=== PATIENT | male | born 1965 | race American Indian/Alaskan Native ===

== ENCOUNTER 2021-10-16 07:56 | Day surgery (SDC) | payer OTHER ==
[2021-10-16 08:56] LABS: Basophils # (Auto) 0.1 K/mm3 (0.0-0.1); Basophils % (Auto) 1.1 % (0.0-1.8); Eosinophils # (Auto) 0.3 K/mm3 (0.0-0.4); Eosinophils % (Auto) 6.2 % (0.0-4.3); Hematocrit 41.3 % (35.5-45.6); Hemoglobin 13.5 gm/dl (11.8-15.2); Lymphocytes # (Auto) 1.8 K/mm3 (1.2-5.4); Lymphocytes % (Auto) 36.5 % (13.4-35.0); Mean Corpuscular HGB Conc 33 % (32-34); Mean Corpuscular Volume 87 fl (84-94); Monocytes # (Auto) 0.6 K/mm3 (0.0-0.8); Monocytes % (Auto) 12.8 % (0.0-7.3); Platelet Count 234 K/mm3 (140-440); Red Blood Count 4.77 M/mm3 (3.65-5.03); Red Cell Distribution Width 14.1 % (13.2-15.2)
[2021-10-16 09:05] LABS: INR 0.89 (0.87-1.13)
[2021-10-16 09:10] LABS: BUN/Creatinine Ratio 13; Blood Urea Nitrogen 14 mg/dL (9-20); Calcium 8.7 mg/dL (8.4-10.2); Hemolysis Index 4
[2021-10-16 09:32] LABS: Partial Thromboplastin Time 27.1 Sec. (24.2-36.6)
[2021-10-16] MEDS: SODIUM CHLORIDE 0.9% 500 ML 500 ML IV SCH ×2 (09:37→10:21)
[2021-10-16] MEDS ORDERED: ASPIRIN 81 MG TAB CHEW PO SCH (10:00)
[2021-10-16] MEDS ORDERED: HEPARIN/NS 5000 UNIT/500ML 1,000 ML IR ONE (10:07)
[2021-10-16] MEDS: LIDOCAINE (1%) 10 MG/1 ML VIAL 20 ML MDV ONE ×2 (10:18→10:33)
[2021-10-16] MEDS: MIDAZOLAM 2 MG/2 ML INJ ONE ×2 (10:19→10:30)
[2021-10-16] MEDS: fentaNYL 100 MCG/2 ML INJ ONE ×2 (10:19→10:30)
[2021-10-16] MEDS: HEPARIN 10,000 UNITS/10 ML VIAL ONE ×2 (10:20→10:35)
[2021-10-16] MEDS: VERAPAMIL 5 MG/2 ML INJ ONE ×2 (10:20→10:35)
[2021-10-16] MEDS: NITROGLYCERIN SYRINGE 3 ML ONE ×2 (10:21→10:35)
[2021-10-16] MEDS ORDERED: NITROGLYCERIN 0.4 MG TAB SUBL SL ONE (10:30)
[2021-10-16] MEDS ORDERED: hydrALAZINE 20 MG/1 ML INJ ONE (10:48)
[2021-10-16] MEDS ORDERED: traMADol 50 MG TAB PO PRN (11:13)
[2021-10-16] MEDS ORDERED: cloNIDine 0.1 MG TAB PO PRN (11:14)
[2021-10-16] MEDS ORDERED: POTASSIUM CHLORIDE ER 20 MEQ TAB PO ONE (11:14)
[2021-10-16] MEDS ORDERED: SODIUM CHLORIDE 0.9% 1000 ML 1,000 ML IV SCH (11:15)
--- NOTE | 2021-10-16 11:17 | Discharge Summary ---
Short Stay Discharge Plan Activity: advance as tolerated Weight Bearing Status: Full Weight Bearing Diet: low fat, low cholesterol, low salt Wound: keep clean and dry Special Instructions: no heavy lifting (3 days) Follow up with: LINDEN MARQUEZ MD [Primary Care Provider] - 7 Days CHEO MINOR MD [Staff Physician] - 7 Days
--- NOTE | 2021-10-16 11:19 | Cardiac Catherization Report ---
DATE OF SERVICE: 10/16/2021 CARDIAC CATHETERIZATION REPORT REASON FOR PROCEDURE: The patient is 56-year-old man with a history of coronary artery disease, presenting with an abnormal thallium stress test for outpatient cardiac catheterization. PROCEDURES: 1. Left heart catheterization. 2. Selective left and right coronary angiography. 3. Left ventricular angiography. 4. Sedation time: Start 10:29, end 10:47. DESCRIPTION OF PROCEDURE: The patient was prepped and draped in a sterile fashion after informed consent. The right radial cath site was prepped and draped after negative Darren's test. The right radial artery was entered using Seldinger technique followed by placement of a 6-Australian hydrophilic sheath. Routine radial cocktail was administered via the sheath. Selective left and right coronary angiography was performed using a #3.5 left [place] and #4 right [place]. The pigtail catheter was used for left ventricular angiography. The catheters were then removed, sheath removed and hemostasis achieved using TR Band. The patient was returned to the postprocedure unit in stable condition. There were no complications. FINDINGS: HEMODYNAMICS: Left ventricular end-diastolic pressure was 29, following coronary angiography. Ascending aortic pressure was 154/105. There was no significant pressure gradient on pullback across the aortic valve. CORONARY ANGIOGRAPHY: Left main coronary artery was angiographically normal. A stent was visible in the mid LAD. There was mild in-stent restenosis, 20-30% luminal narrowing of the mid portion of the stented segment. Otherwise, the stent was widely patent. The rest of the LAD and the diagonal branches were free of significant disease. The circumflex artery contained mild luminal irregularities free of significant disease. The right coronary artery was a large, dominant vessel that contained a 20% luminal stenosis of the proximal segment, otherwise free of significant disease. Left ventricular systolic function was within normal limits. Ejection fraction greater than 55%. CONCLUSION: 1. Mild, nonobstructive in-stent restenosis of the mid LAD stent, mild luminal irregularities in other non-stented segments as described above. 2. No significant obstructive disease is demonstrated on coronary angiography. 3. Well preserved left ventricular systolic function, ejection fraction 55%. RECOMMENDATIONS: Risk factor modification and medical therapy. TID: [id number] RECEIPT: [id number] CA/PUN
[2021-10-16 15:46] VITALS: BP 169/93
--- NOTE | 2021-10-17 11:08 | Electrocardiograph Report ---
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
== END 2021-10-16 07:57 | disposition home or self-care (01) ==
LOC: CATHLABREC 07:56
PROVIDERS: ATTEND Internal Medicine Cardiovascular Disease
DX: R94.39 Abnormal result of other cardiovascular function study (principal); I25.10 Atherosclerotic heart disease of native coronary artery without angina pectoris; I70.0 Atherosclerosis of aorta; T82.855A Stenosis of coronary artery stent, initial encounter; I10 Essential (primary) hypertension; K21.9 Gastro-esophageal reflux disease without esophagitis; E78.00 Pure hypercholesterolemia, unspecified; G47.30 Sleep apnea, unspecified; E66.9 Obesity, unspecified; Z88.0 Allergy status to penicillin; Z79.899 Other long term (current) drug therapy; Z79.82 Long term (current) use of aspirin; Z95.5 Presence of coronary angioplasty implant and graft; Z68.41 Body mass index [BMI] 40.0-44.9, adult; Z98.890 Other specified postprocedural states; Y83.8 Other surgical procedures as the cause of abnormal reaction of the patient, or of later complication, without mention of misadventure at the time of the procedure; Y92.89 Other specified places as the place of occurrence of the external cause
CPT/HCPCS: 36415; 80048; 85025; 85610; 85730; 93005; 93458; 99156; C1894; J0360; J1644; J1815; J2250; J3010; J7040; Q9967